=== PATIENT | female | born 1945 | race Caucasian/White ===

== ENCOUNTER 2021-02-28 20:15 | Emergency (ER) | payer MEDICAID ==
[~2021-02-28] VITALS: Ht 167.6 cm; Wt 96.2 kg
[2021-02-28 20:28] VITALS: BP 137/65
--- NOTE | 2021-02-28 20:28 | NUR ---
76 YO F SUNI FROM [facility] WITH C/C OF VAGINAL BLEEDING X3DAYS. PER PT SHE HAS BEEN BLEEDING ON AND OFF X3DAYS, STATES THAT AT THIS MOMENT SHE IS JUST SPOTTING. REPORTS INCREASED URINATION. DENIES PAIN, SOB. ALL NEEDS MET AT THIS TIME. PT'S URINE COLLECTED. HX:AFIB, MUSCLE WEAKNESS (GEN), DM2, HEMIPLAGIA- CVA lEFT SIDE, HTN, HDL NKA RX: ATROVASTATIN 40MG, METFORMIN 500MG, ELIQUIS, ALBINA, AMLODIPINE,
[2021-02-28 21:30] LABS: BASOPHILS % (AUTO) 0.3 % (0.0-2.0); EOSINOPHILS # (AUTO) 0.2 K/uL (0-0.4); EOSINOPHILS % (AUTO) 2.7 % (0.0-4.0); HEMATOCRIT 36.3 % (36-48); HEMOGLOBIN 12.1 g/dL (12.0-16.0); LYMPHOCYTES # (AUTO) 2.2 K/uL (2.5-16.5); LYMPHOCYTES % (AUTO) 31.4 % (20.5-51.1); MEAN CORPUSCULAR HEMOGLOBIN 30 pg (27-31); MEAN CORPUSCULAR HGB CONC 33 g/dL (33-37); MEAN CORPUSCULAR VOLUME 91.1 fL (80-94); MONOCYTES # (AUTO) 0.6 K/uL (0.8-1.0); MONOCYTES % (AUTO) 7.9 % (1.7-9.3); NEUTROPHILS % (AUTO) 57.7 % (42.2-75.2); PLATELET COUNT (AUTO) 178 K/uL (140-450); RED BLOOD CELL COUNT(AUTO) 3.98 MIL/uL (4.20-5.40); RED CELL DISTRIBUTION WIDTH 13.8 % (11.6-13.7)
--- NOTE | 2021-02-28 21:30 | NUR ---
PT ASSISTED TO BEDPAN.
[2021-02-28 21:32] LABS: APPEARANCE,URINE CLEAR (CLEAR); BILIRUBIN,URINE NEGATIVE (NEGATIVE); BLOOD, URINE TRACE-I (NEGATIVE); COLOR,URINE YELLOW (YELLOW); LEUKOCYTE ESTERASE ,URINE TRACE (NEGATIVE); NITRITE, URINE NEGATIVE (NEGATIVE); PH,URINE 6.5 (5.0-9.0); UGLUCOSE NEGATIVE (NEGATIVE)
[2021-02-28 21:47] LABS: RBC,URINE 0-5 /HPF (0-5); WBC,URINE 0-5 /HPF (0-5)
[2021-02-28 21:50] LABS: ALBUMIN 3.4 g/dL (3.4-5.0); ANION GAP 8.1 (8-16); ASPARTATE AMINOTRANSFERASE 20 U/L (15-37); CARBON DIOXIDE 30.1 mmol/L (21-32); CHLORIDE 104 mmol/L (98-107); CREATININE 0.7 mg/dL (0.6-1.3); GLUCOSE 136 mg/dL (74-106); POTASSIUM 4.2 mmol/L (3.5-5.1); SODIUM SERUM 138 mmol/L (136-145); TOTAL BILIRUBIN 0.4 mg/dL (0.0-1.0); UREA NITROGEN, BLOOD 17 mg/dL (7-18)
--- NOTE | 2021-02-28 22:03 | NUR ---
PT IN CT.
--- NOTE | 2021-02-28 22:08 | NUR ---
PT BACK FROM CT.
--- NOTE | 2021-02-28 23:13 | NUR ---
PT URINATED ON SELF, PT CHANGED INTO DRY CLOTHING AND BEDING CHANGED WELL. ALL NEEDS MET AT THIS TIME.
--- NOTE | 2021-02-28 23:42 | NUR ---
FECAL OCCULT TAKEN TO LAB.
--- NOTE | 2021-03-01 01:25 | NUR ---
PT GIVEN MORE BLANKETS PER REQUEST.
--- NOTE | 2021-03-01 03:02 | NUR ---
pt has eyes closed. equal rise and fall of chest wall. opens eyes to touch. vss. pt is in stable condition. all needs met at this time. bed locked in lowest position, side rails x2.
--- NOTE | 2021-03-01 03:39 | NUR ---
pt's diaper changed. all needs met at this time.
--- NOTE | 2021-03-01 06:38 | NUR ---
PT'S DIAPER CHANGED.
[2021-03-01] MEDS ORDERED: KETOROLAC 60 MG/2 ML VIAL IM ONE (06:40)
--- NOTE | 2021-03-01 07:17 | NUR ---
REPORT RECEIVED FROM BRONSON STUBBS FOR CONTINUITY OF CARE.
--- NOTE | 2021-03-01 07:17 | NUR ---
REPORT GIVEN TO EVELYNE WELCH. TRANSFER OF CARE AT THIS TIME.
--- NOTE | 2021-03-01 07:35 | NUR ---
Pt report given to AMANDA STUBBS. Transfer of care at this time.
--- NOTE | 2021-03-01 10:17 | NUR ---
Patient discharged with v/s stable. Written and verbal after care instructions given and explained. Patient alert, oriented and verbalized understanding of instructions. Ambulance Transport with to alf. All questions addressed prior to discharge. ID band removed. Patient advised to follow up with PMD. Opportunity to ask questions provided and answered.
[2021-03-01 10:18] VITALS: BP 146/87
== END 2021-03-01 10:17 ==
LOC: MED 20:15
DX: N28.9 Disorder of kidney and ureter, unspecified (principal); E11.9 Type 2 diabetes mellitus without complications; I10 Essential (primary) hypertension; E78.5 Hyperlipidemia, unspecified; Z98.890 Other specified postprocedural states; Z90.710 Acquired absence of both cervix and uterus; Z86.73 Personal history of transient ischemic attack (TIA), and cerebral infarction without residual deficits
CPT/HCPCS: 36415; 74176; 80053; 81001; 82272; 85025; 96372; 99285; J1885